=== PATIENT | female | born 1995 | race Caucasian/White ===

== ENCOUNTER 2019-02-15 22:28 | Emergency (ER) | payer BC, OTHER ==
--- NOTE | 2019-02-15 22:47 | EDM.PDOC ---
ED HPI GENERAL MEDICAL PROBLEM - General Chief Complaint: Back Pain or Injury Stated Complaint: LOWER BACK PAIN Time Seen by Provider: 02/15/19 22:38 - History of Present Illness INITIAL COMMENTS - FREE TEXT/NARRATIVE: HISTORY AND PHYSICAL: History of present illness: The patient is a healthy 23-year-old female with no GI or history who presents with lumbar back pain bilaterally that started about 2 AM and radiates to her anterior abdomen bilaterally. The patient says she was asleep and awakened by the discomfort which was in her bilateral lumbar area but does not radiate to her but or her legs and she has no weakness numbness or tingling in her lower extremities. She says the pain is slightly radiating upper back but does not involve her flanks and she's had no dysuria frequency urgency or hematuria. She has no vaginal complaints such as discharge or bleeding and she says her last period was the third week of January and she is regular but she is trying to get . The patient did take a test this morning that was negative. She's never had a kidney stone before and she's had no fevers chills nausea vomiting or diarrhea. She has normal bowel movements and has been eating and drinking normally. The patient says that the discomfort in her back is a deep aching pain and she says that if she lays on it or moves around it seems to be more uncomfortable. She feels like her abdomen is bloated and there is more pressure and discomfort in the abdomen but it is not sharp or burning. Has no abdominal surgical history. The patient did not try any over-the -counter medications for this pain nor did she try any symptomatic care such as an ice pack or heating pad. The pain is not particularly triggered by movements but she says that when she did sit down this evening and bent over to take her shoes off she felt more discomfort with that motion. She feels like she's having difficulty sleeping because of the discomfort and she is here for evaluation. Review of systems: As per history of present illness and below otherwise all systems reviewed and negative. Past medical history: As per history of present illness and as reviewed below otherwise noncontributory. Surgical history: As per history of present illness and as reviewed below otherwise noncontributory. Social history: No reported history of drug or alcohol abuse. Family history: As per history of present illness and as reviewed below otherwise noncontributory. Physical exam: General: Well-developed well-nourished female who is nontoxic and vital signs are noted by me. She moves easily in the ED without distress and ambulated into the ED HEENT: Atraumatic, normocephalic, negative for conjunctival pallor or scleral icterus, mucous membranes moist, throat clear, neck supple, nontender, trachea midline. Lungs: Clear to auscultation, breath sounds equal bilaterally, chest nontender. Heart: S1S2, regular rate and rhythm no overt murmurs Abdomen: Soft, nondistended, nontender. Negative for masses or hepatosplenomegaly. Negative for costovertebral tenderness. On palpation I cannot reproduce the pain in the abdomen and bowel sounds are normoactive Pelvis: Stable nontender. Genitourinary: Deferred. Rectal: Deferred. Extremities: Atraumatic, negative for cords or calf pain. Neurovascular unremarkable. Neuro: Awake, alert, oriented. Cranial nerves II through XII unremarkable. Cerebellum unremarkable. Motor and sensory unremarkable throughout. Exam nonfocal. All movements are intact including gait standing and sitting and dorsi and plantar flexion is intact 5/5 inclusive of the great toe bilaterally. Tone in the lower extremities is normal as is strength and sensation grossly. Back: There are no midline step-offs in his defects of the thoracic or lumbar spine and no CVA tenderness or posterior rib tenderness. There is some diffuse discomfort with palpation of the paraspinal musculature in the lumbar region but there is no one focal area of discomfort. Diagnostics: UA with reflex UCG--- patient denies STD risks and does not want testing CBC CMP CT scan of the abdomen and pelvis Therapeutics: Toradol IM Please note that the patient did warn me that she was very nervous about having her blood drawn and in fact when she was having blood draw she did have a brief fainting episode and did drop her blood pressure which quickly came back. She does not want IV placement. The pt is aware that all testing results here are negative and that she will need to follow-up in the clinic and try symptomatic care at home. When I went in to discuss the patient's results she was sitting and the recliner with her knees and hips flexed and comfortably working on her cell phone Impression: Lower back/lower abdominal pain Definitive disposition and diagnosis as appropriate pending reevaluation and review of above. low back Pain Score (Numeric/FACES): 8 - Related Data Allergies Allergy/AdvReac Type Severity Reaction Status Date / Time oxycodone Allergy Hives Verified 06/08/17 12:02 shellfish derived Allergy Hives Verified 06/08/17 12:03 Sulfa (Sulfonamide Allergy Hives Verified 02/15/19 22:38 Antibiotics) Home Meds: Home Meds DULoxetine HCl [Cymbalta] 60 mg PO DAILY 02/15/19 [History] Ubidecarenone [Q-Sorb Co Q-10] 200 mg PO DAILY 02/15/19 [History] ED ROS GENERAL - Review of Systems Review Of Systems: ROS reveals no pertinent complaints other than HPI. ED EXAM, GENERAL - Physical Exam Exam: See Below (see dictation) Course - Vital Signs Last Recorded V/S: Last Vital Signs Temp 36.7 C 02/15/19 22:30 Pulse 77 02/15/19 23:23 Resp 18 02/15/19 23:23 BP 92/54 L 02/15/19 23:23 Pulse Ox 99 02/15/19 22:30 - Orders/Labs/Meds Labs: Laboratory Tests 02/15/19 02/15/19 02/15/19 Range/Units 22:43 22:43 23:12 WBC 7.18 (4.0-11.0) K/uL RBC 4.47 (4.30-5.90) M/uL Hgb 13.8 (12.0-16.0) g/dL Hct 41.8 (36.0-46.0) % MCV 93.5 (80.0-98.0) fL MCH 30.9 (27.0-32.0) pg MCHC 33.0 (31.0-37.0) g/dL RDW Std Deviation 44.8 (28.0-62.0) fl RDW Coeff of Renee 13 (11.0-15.0) % Plt Count 265 (150-400) K/uL MPV 9.90 (7.40-12.00) fL Neut % (Auto) 46.9 L (48.0-80.0) % Lymph % (Auto) 40.1 H (16.0-40.0) % [place] % (Auto) 10.4 (0.0-15.0) % Eos % (Auto) 2.2 (0.0-7.0) % Baso % (Auto) 0.4 (0.0-1.5) % Neut # (Auto) 3.4 (1.4-5.7) K/uL Lymph # (Auto) 2.9 H (0.6-2.4) K/uL [place] # (Auto) 0.8 (0.0-0.8) K/uL Eos # (Auto) 0.2 (0.0-0.7) K/uL Baso # (Auto) 0.0 (0.0-0.1) K/uL Nucleated RBC % 0.0 /100WBC Nucleated RBCs # 0 K/uL Sodium (136-145) mmol/L Potassium (3.5-5.1) mmol/L Chloride (98-107) mmol/L Carbon Dioxide (21.0-32.0) mmol/L BUN (7.0-18.0) mg/dL Creatinine (0.6-1.0) mg/dL Est Cr Clr Drug Dosing mL/min Estimated GFR (MDRD) ml/min Glucose (74-106) mg/dL Calcium (8.5-10.1) mg/dL Total Bilirubin (0.2-1.0) mg/dL AST (15-37) IU/L ALT (14-63) IU/L Alkaline Phosphatase (46-116) U/L Total Protein (6.4-8.2) g/dL Albumin (3.4-5.0) g/dL Globulin (2.6-4.0) g/dL Albumin/Globulin Ratio (0.9-1.6) Urine Color YELLOW Urine Appearance CLEAR Urine pH 6.5 (5.0-8.0) Ur Specific [place] 1.020 (1.001-1.035) Urine Protein NEGATIVE (NEGATIVE) mg/dL Urine Glucose (UA) NEGATIVE (NEGATIVE) mg/dL Urine Ketones NEGATIVE (NEGATIVE) mg/dL Urine Occult Blood NEGATIVE (NEGATIVE) Urine Nitrite NEGATIVE (NEGATIVE) Urine Bilirubin NEGATIVE (NEGATIVE) Urine Urobilinogen 0.2 (<2.0) EU/dL Ur Leukocyte Esterase NEGATIVE (NEGATIVE) Urine HCG, Qual NEGATIVE (NEGATIVE) 02/15/19 Range/Units 23:12 WBC (4.0-11.0) K/uL RBC (4.30-5.90) M/uL Hgb (12.0-16.0) g/dL Hct (36.0-46.0) % MCV (80.0-98.0) fL MCH (27.0-32.0) pg MCHC (31.0-37.0) g/dL RDW Std Deviation (28.0-62.0) fl RDW Coeff of Renee (11.0-15.0) % Plt Count (150-400) K/uL MPV (7.40-12.00) fL Neut % (Auto) (48.0-80.0) % Lymph % (Auto) (16.0-40.0) % [place] % (Auto) (0.0-15.0) % Eos % (Auto) (0.0-7.0) % Baso % (Auto) (0.0-1.5) % Neut # (Auto) (1.4-5.7) K/uL Lymph # (Auto) (0.6-2.4) K/uL [place] # (Auto) (0.0-0.8) K/uL Eos # (Auto) (0.0-0.7) K/uL Baso # (Auto) (0.0-0.1) K/uL Nucleated RBC % /100WBC Nucleated RBCs # K/uL Sodium 142 (136-145) mmol/L Potassium 4.5 (3.5-5.1) mmol/L Chloride 107 (98-107) mmol/L Carbon Dioxide 24.4 (21.0-32.0) mmol/L BUN 11 (7.0-18.0) mg/dL Creatinine 0.7 (0.6-1.0) mg/dL Est Cr Clr Drug Dosing 130.63 mL/min Estimated GFR (MDRD) > 60.0 ml/min Glucose 89 (74-106) mg/dL Calcium 8.9 (8.5-10.1) mg/dL Total Bilirubin 0.2 (0.2-1.0) mg/dL AST 19 (15-37) IU/L ALT 25 (14-63) IU/L Alkaline Phosphatase 100 (46-116) U/L Total Protein 6.7 (6.4-8.2) g/dL Albumin 3.4 (3.4-5.0) g/dL Globulin 3.3 (2.6-4.0) g/dL Albumin/Globulin Ratio 1.0 (0.9-1.6) Urine Color Urine Appearance Urine pH (5.0-8.0) Ur Specific [place] (1.001-1.035) Urine Protein (NEGATIVE) mg/dL Urine Glucose (UA) (NEGATIVE) mg/dL Urine Ketones (NEGATIVE) mg/dL Urine Occult Blood (NEGATIVE) Urine Nitrite (NEGATIVE) Urine Bilirubin (NEGATIVE) Urine Urobilinogen (<2.0) EU/dL Ur Leukocyte Esterase (NEGATIVE) Urine HCG, Qual (NEGATIVE) Meds: Medications Discontinued Medications Generic Name Dose Route Start Last Admin Trade Name Jenny PRN Reason Stop Dose Admin Ketorolac Tromethamine 60 mg 02/15/19 23:04 02/15/19 23:21 Toradol IM 02/15/19 23:05 60 mg ONETIME ONE Administration Departure - Departure Time of Disposition: 00:03 Disposition: Home, Self-Care 01 Condition: Good Clinical Impression: Lower abdominal pain Lower back pain Qualifiers: Chronicity: unspecified Back pain laterality: bilateral Sciatica presence: without sciatica Qualified Code(s): M54.5 - Low back pain - Discharge Information Referrals: Tabitha Lazo NP [Primary Care Provider] - Forms: ED Department Discharge Additional Instructions: The following information is given to patients seen in the emergency department who are being discharged to home. This information is to outline your options for follow-up care. We provide all patients seen in our emergency department with a follow-up referral. The need for follow-up, as well as the timing and circumstances, are variable depending upon the specifics of your emergency department visit. If you don't have a primary care physician on staff, we will provide you with a referral. We always advise you to contact your personal physician following an emergency department visit to inform them of the circumstance of the visit and for follow-up with them and/or the need for any referrals to a consulting specialist. The emergency department will also refer you to a specialist when appropriate. This referral assures that you have the opportunity for followup care with a specialist. All of these measure are taken in an effort to provide you with optimal care, which includes your followup. Under all circumstances we always encourage you to contact your private physician who remains a resource for coordinating your care. When calling for followup care, please make the office aware that this follow-up is from your recent emergency room visit. If for any reason you are refused follow-up, please contact the [facility] emergency department at and ask to speak to the emergency department charge nurse. [facility] Primary care- Internal Medicine and Family [address] [address] Use [id number] ibuprofen/Aleve or Tylenol for pain management and use heat or ice as you choose. Do all body position movements and changing slowly and please call and follow-up with one of our clinic providers for reevaluation and further care as we discussed. Return to ER as needed and as discussed
[2019-02-15] MEDS ORDERED: Ketorolac 60 MG/2 ML SDV IM ONE (23:04)
[2019-02-15 23:39] LABS: BLOOD UREA NITROGEN,BUN 11 mg/dL (7.0-18.0); CARBON DIOXIDE,CO2 24.4 mmol/L (21.0-32.0); CHLORIDE,CL 107 mmol/L (98-107); GLUCOSE RANDOM 89 mg/dL (74-106); POTASSIUM,K 4.5 mmol/L (3.5-5.1); SODIUM,NA 142 mmol/L (136-145)
--- NOTE | 2019-02-15 23:49 | CT ---
Indication: Low back pain and abdominal pain Technique: Nonenhanced axial CT imaging through the abdomen and pelvis. Sagittal and coronal reconstructions are provided. Comparison: None Findings: There is unremarkable noncontrast appearance of the liver, gallbladder, spleen, pancreas, and adrenal glands. There is normal renal parenchymal attenuation without hydronephrosis. No stones are seen in the renal collecting systems, ureters, or urinary bladder. The stomach and duodenum are unremarkable. There are no abnormally dilated small bowel loops. The appendix is noninflamed. There is no colonic wall thickening. No inflammatory changes are demonstrated in the mesentery. There is no abdominal lymphadenopathy. There is normal caliber of the abdominal aorta. The visualized osseous structures are unremarkable. The included lung bases are clear. Impression: No acute process demonstrated in the abdomen and pelvis. No nephrolithiasis or urinary obstruction. Please note that all CT scans at this facility use dose modulation, iterative reconstruction, and/or weight-based dosing when appropriate to reduce radiation dose to as low as reasonably achievable. Dictated by Kenny Madrigal MD @ Feb 15 2019 11:39PM Signed by Dr. Kenny Madrigal @ Feb 15 2019 11:48PM
== END 2019-02-16 00:20 | disposition home or self-care (01) ==
LOC: MW.ED 22:28
DX: M54.5 Low back pain (principal); R10.30 Lower abdominal pain, unspecified; Z88.5 Allergy status to narcotic agent; Z88.2 Allergy status to sulfonamides; Z91.013 Allergy to seafood
CPT/HCPCS: 36415; 74176; 74176-26; 80053; 81003; 81025; 85025; 96372; 99284-25; J1885

== ENCOUNTER 2019-11-09 20:29 | Emergency (ER) | payer OTHER, BC ==
[2019-11-09] MEDS ORDERED: Ibuprofen 600 MG Tab PO ONE (23:42)
[2019-11-09] MEDS ORDERED: Sulfamethoxazole/Trimethoprim 800-160 MG Tab PO ONE (23:42)
--- NOTE | 2019-11-09 23:48 | EDM.PDOC ---
ED HPI GENERAL MEDICAL PROBLEM - General Chief Complaint: Bite:Animal, Insect Stated Complaint: BUG BITE ON LT LEG Time Seen by Provider: 11/09/19 23:35 Source of Information: Reports: Patient - History of Present Illness INITIAL COMMENTS - FREE TEXT/NARRATIVE: HISTORY AND PHYSICAL: History of present illness: This is a 24-year-old female who presents ER today complaining of pain and swelling to her left upper inner thigh that started Thursday. Patient reports that it started out as a pus pocket on Thursday and started to drain purulent material. Patient reports that she had increased redness to the area over the last 24 to 48 hours. Patient reports approximately 2 days ago she experienced fevers and chills. She reports she went to seek medical care in the performed a coronavirus test which was negative but never treated her further for the redness to her upper inner thigh. Patient denies any nausea, vomiting, diarrhea, dysuria, frequency, urgency, chest pain, shortness of breath. Review of systems: As per history of present illness and below otherwise all systems reviewed and negative. Past medical history: As per history of present illness and as reviewed below otherwise non contributory. Surgical history: As per history of present illness and as reviewed below otherwise noncontributory. Social history: No reported history of drug or alcohol abuse. Family history: As per history of present illness and as reviewed below otherwise noncontributory. Physical exam: HEENT: Atraumatic, normocephalic, pupils reactive, negative for conjunctival pallor or scleral icterus, mucous membranes moist, throat clear, neck supple, nontender, trachea midline. Lungs: Clear to auscultation, breath sounds equal bilaterally, chest nontender. Heart: S1S2, regular, negative for clicks, rubs, or JVD. Abdomen: Soft, nondistended, nontender. Negative for masses or hepatosplenomegaly. Negative for costovertebral tenderness. Pelvis: Stable nontender. Genitourinary: Deferred. Rectal: Deferred. Extremities: Atraumatic, negative for cords or calf pain. Neurovascular unremarkable. Neuro: Awake, alert, oriented. Cranial nerves II through XII unremarkable. Cerebellum unremarkable. Motor and sensory unremarkable throughout. Exam nonfocal. Patient's ER physical exam is significant for approximate 6 x 6 cm area of erythema with a central pustular area that appears to have been drained. No fluctuance or abscess identified. Assessment and plan: 24-year-old female who presents the ER today with likely cellulitis. Etiology of the cellulitis is possible spider bite versus folliculi tis. Patient will be started on doxycycline as she is allergic to sulfa. Patient be given ibuprofen to assist her with the pain. Reassessment at the time of disposition demonstrates that the patient is in no acute distress. The patient has remained stable throughout the entire ED visit and is without objective evidence for acute process requiring urgent intervention or hospitalization. The patient is stable for discharge, counseling is provided as documented above, discussed symptomatic treatment and specific conditions for return. I have spoken with the patient/caregive and discussed todays findings, in addition to providing specific details for the plan of care. Questions are answered and there is agreement with the plan. - Related Data Allergies Allergy/AdvReac Type Severity Reaction Status Date / Time oxycodone Allergy Hives Verified 11/09/19 21:03 shellfish derived Allergy Hives Verified 11/09/19 21:03 Sulfa (Sulfonamide Allergy Hives Verified 11/09/19 21:03 Antibiotics) Home Meds: Home Meds Doxycycline [Vibramycin] 100 mg PO BID #20 tab 11/10/19 [Rx] Ibuprofen 600 mg PO Q6HR PRN #30 tablet 11/10/19 [Rx] Past Medical History Other [employer] History: breast implants 2016 Psychiatric History: Reports: Anxiety - Past Surgical History Female Surgical History: Reports: Breast Reconstruction Social & Family History - Family History Family Medical History: Noncontributory - Tobacco Use Smoking Status *Q: Never Smoker - Caffeine Use Caffeine Use: Reports: Coffee, Energy Drinks, Soda, Tea - Recreational Drug Use Recreational Drug Use: No ED ROS GENERAL - Review of Systems Review Of Systems: Comprehensive ROS is negative, except as noted in HPI. ED EXAM, ANIMAL BITE - Physical Exam Exam: See Below Course - Vital Signs Last Recorded V/S: Last Vital Signs Temp 96.4 F L 11/10/19 00:23 Pulse 71 11/10/19 00:23 Resp 16 11/10/19 00:23 BP 109/75 11/10/19 00:23 Pulse Ox 97 11/10/19 00:23 - Orders/Labs/Meds Labs: Laboratory Tests 11/09/19 Range/Units 23:58 Urine HCG, Qual NEGATIVE (NEGATIVE) Meds: Medications Discontinued Medications Generic Name Dose Route Start Last Admin Trade Name Christianq PRN Reason Stop Dose Admin Doxycycline Hyclate 100 mg 11/10/19 00:12 11/10/19 00:21 Vibramycin PO 11/10/19 00:13 100 mg ONETIME ONE Administration Ibuprofen 600 mg 11/09/19 23:42 11/10/19 00:21 Motrin PO 11/09/19 23:43 600 mg ONETIME ONE Administration Trimethoprim/Sulfamethoxazole 2 tab 11/09/19 23:42 11/10/19 00:23 Septra Ds PO 11/09/19 23:43 Not Given ONETIME ONE Departure - Departure Time of Disposition: 23:43 Disposition: Home, Self-Care 01 Condition: Good Clinical Impression: Cellulitis - Discharge Information Prescriptions: Ibuprofen 600 mg PO Q6HR PRN #30 tablet PRN Reason: Pain Doxycycline [Vibramycin] 100 mg PO BID #20 tab Instructions: Cellulitis, Adult Referrals: PCP,None [Primary Care Provider] - Forms: ED Department Discharge Additional Instructions: Your evaluation today reveals that you likely have a cellulitis to your left upper inner thigh. You will get started on doxycycline to help treat the infection. Please return to the ER if you start developing fevers or worsening redness. Take the doxycycline as prescribed twice daily for 10 days. Please see your doctor in 2 to 3 days for reevaluation to make sure that the infection is improving. The following information is given to patients seen in the emergency department who are being discharged to home. This information is to outline your options for follow-up care. We provide all patients seen in our emergency department with a follow-up referral. The need for follow-up, as well as the timing and circumstances, are variable depending upon the specifics of your emergency department visit. If you don't have a primary care physician on staff, we will provide you with a referral. We always advise you to contact your personal physician following an emergency department visit to inform them of the circumstance of the visit and for follow-up with them and/or the need for any referrals to a consulting specialist. The emergency department will also refer you to a specialist when appropriate. This referral assures that you have the opportunity for follow-up care with a specialist. All of these measure are taken in an effort to provide you with optimal care, which includes your follow-up. Under all circumstances we always encourage you to contact your private physician who remains a resource for coordinating your care. When calling for follow-up care, please make the office aware that this follow-up is from your recent emergency room visit. If for any reason you are refused follow-up, please contact the [facility] Emergency Department at and asked to speak to the emergency department charge nurse. Sepsis Event Note (ED) - Evaluation Sepsis Screening Result: No Definite Risk - Focused Exam Vital Signs: Vital Signs Temp Pulse Resp BP Pulse Ox 11/10/19 00:23 96.4 F L 71 16 109/75 97 11/09/19 23:39 96.2 F L 78 127/72 99 11/09/19 21:04 98.9 F 86 20 129/75 98
[2019-11-10] MEDS ORDERED: Doxycycline 100 MG Cap PO ONE (00:12)
== END 2019-11-10 00:29 | disposition home or self-care (01) ==
LOC: MW.ED 20:29
DX: L03.116 Cellulitis of left lower limb (principal); Z88.5 Allergy status to narcotic agent; Z88.2 Allergy status to sulfonamides; Z91.013 Allergy to seafood
CPT/HCPCS: 81025; 99283; A9270; 99282

== ENCOUNTER 2022-05-16 05:01 | Inpatient (IN) | payer BC ==
[2022-05-16] MEDS ORDERED: Tranexamic Acid 1,000 MG in Sodium Chloride 0.9% 100 ML IV PRN (05:25)
[2022-05-16] MEDS ORDERED: Methylergonovine 0.2 MG/1 ML Amp IM PRN (05:25)
[2022-05-16] MEDS ORDERED: Water For Irrigation,Sterile 1,000 ML Container IRR PRN (05:25)
[2022-05-16] MEDS ORDERED: Ondansetron 4 MG/2 ML SDV IVPUSH PRN (05:25)
[2022-05-16] MEDS ORDERED: Sodium Chloride 0.9% 10 ML Syringe FLUSH PRN (05:25)
[2022-05-16] MEDS ORDERED: Lidocaine 1% 50 ML MDV INJECT PRN (05:25)
[2022-05-16] MEDS ORDERED: Misoprostol 200 MCG Tab PO PRN (05:25)
[2022-05-16] MEDS ORDERED: Sodium Chloride 0.9% 20 ML SDV IV PRN (05:25)
[2022-05-16] MEDS ORDERED: Terbutaline 1 MG/ML SDV SUBCUT PRN (05:25)
[2022-05-16] MEDS ORDERED: Butorphanol 1 MG/ML SDV IVPUSH PRN (05:25)
[2022-05-16] MEDS ORDERED: Carboprost Tromethamine 250 MCG/1 ML Amp IM PRN (05:25)
[2022-05-16] MEDS ORDERED: Sodium Chloride 0.9% 2.5 ML Syringe FLUSH PRN (05:25)
[2022-05-16] MEDS ORDERED: Oxytocin/0.9 % Sodium Chloride 30 UNIT/500 ML BAG IV SCH ×2 (05:30)
[2022-05-16] MEDS: Lactated Ringers 1,000 ML IV SCH ×4 (06:28→16:24)
[2022-05-16] MEDS ORDERED: Ropivacaine/PF 400 MG/200 ML PCA ONE (10:48)
[2022-05-16] MEDS ORDERED: Phenylephrine HCl In 0.9% NaCl 1 MG/10 ML Vial IVPUSH PRN (11:03)
[2022-05-16] MEDS ORDERED: ePHEDrine 50 MG/ML SDV IVPUSH PRN (11:03)
[2022-05-16] MEDS ORDERED: Ropivacaine HCl/PF 400 MG in Premix Bag 1 BAG EPIDUR SCH (11:15)
[2022-05-16] MEDS ORDERED: Dexmedetomidine 200 MCG/2 ML SDV ONE (11:19)
[2022-05-16] MEDS ORDERED: Ropivacaine 0.5% 5 MG/ML 30 ML SDV ONE (11:19)
[2022-05-16] MEDS ORDERED: Acetaminophen 500 MG Tab PO ONE (16:33)
[2022-05-16] MEDS ORDERED: Acetaminophen 500 MG Tab PO PRN (23:02)
[2022-05-16] MEDS ORDERED: Witch Hazel Medicated Pads 40/Jar TOP PRN (23:02)
[2022-05-16] MEDS ORDERED: Ibuprofen 400 MG Tab PO PRN (23:02)
[2022-05-16] MEDS ORDERED: Bisacodyl 10 MG Supp RECTAL PRN (23:02)
[2022-05-16] MEDS ORDERED: Benzocaine/Menthol 20%-0.5% Spray 78 GM Cannister TOP PRN (23:02)
[2022-05-16] MEDS ORDERED: Docusate Sodium 100 MG Cap PO PRN (23:02)
[2022-05-16] MEDS ORDERED: Lanolin 100% Cream 7 GM Tube TOP PRN (23:02)
[2022-05-16] MEDS ORDERED: oxyCODONE 5 MG Tab PO PRN (23:02)
[2022-05-17] MEDS: Ibuprofen 800 MG Tab PO PRN ×2 (01:50→19:22)
[2022-05-17] MEDS: Acetaminophen 500 MG Tab PO PRN ×2 (07:54→16:05)
[2022-05-18] MEDS: Acetaminophen 500 MG Tab PO PRN ×2 (01:00→07:54)
== END 2022-05-18 11:50 | disposition home or self-care (01) | DRG 560 ==
LOC: MW.OBCHECK 05:01 → MW.OB 05:02 → MW.OBCHECK 05:25 → OBSVTOIN 22:36 → MW.OB 05-17 03:01
PROVIDERS: ADMIT Obstetrics & Gynecology; ATTEND Obstetrics & Gynecology
PROC: 10E0XZZ Delivery of Products of Conception, External Approach (ICD-10-PCS; principal; 2022-05-16)
PROC: 10907ZC Drainage of Amniotic Fluid, Therapeutic from Products of Conception, Via Natural or Artificial Opening (ICD-10-PCS; 2022-05-16)
PROC: 10H07YZ Insertion of Other Device into Products of Conception, Via Natural or Artificial Opening (ICD-10-PCS; 2022-05-16)
PROC: 3E033VJ Introduction of Other Hormone into Peripheral Vein, Percutaneous Approach (ICD-10-PCS; 2022-05-16)
PROC: 0UQKXZZ Repair Hymen, External Approach (ICD-10-PCS; 2022-05-16)
PROC: 3E0R3BZ Introduction of Anesthetic Agent into Spinal Canal, Percutaneous Approach (ICD-10-PCS; 2022-05-16)
PROC: 00HU33Z Insertion of Infusion Device into Spinal Canal, Percutaneous Approach (ICD-10-PCS; 2022-05-16)
DX: O99.344 Other mental disorders complicating childbirth (principal); O70.0 First degree perineal laceration during delivery; Z37.0 Single live birth; Z3A.40 40 weeks gestation of pregnancy; F41.9 Anxiety disorder, unspecified; F32.A Depression, unspecified; Z20.822 Contact with and (suspected) exposure to COVID-19; Z88.5 Allergy status to narcotic agent; Z91.013 Allergy to seafood; Z88.2 Allergy status to sulfonamides
CPT/HCPCS: 36415; 59025; 59409; 85014; 85018; 85027; 86592; 86850; 86900; 86901; A9270-GY; J2590; J2795; J3490; J7120; U0002